=== PATIENT | male | born 1960 | race Caucasian/White ===

== ENCOUNTER 2023-04-03 11:53 | Emergency (ER) | payer OTHER, SELFPAY ==
[2023-04-03 11:59] VITALS: BP 142/67; PULSE 95; RESP 20; TEMP 37.2; O2SAT 96; BMI 39.1
--- NOTE | 2023-04-03 12:22 | ED.SKABFB1 ---
HPI - Skin/Abscess/Foreign Bdy General Chief complaint: Skin/Abscess/Foreign Body Stated complaint: tick bite/chest Time Seen by Provider: 04/03/23 12:06 Source: patient Mode of arrival: walk-in Limitations: no limitations History of Present Illness HPI narrative: 63-year-old male presents for a tick bite. His took it off of him this morning. It was definitely not there yesterday, it would have been noticed. They have a rescue dog and there was some ticks on the dog. He had some redness at the site so his brought him in to get checked. She is concerned because he is diabetic. No drainage. Related Data Home Medications Medication Instructions Recorded Confirmed amitriptyline 10 mg tablet 30 mg PO DAILY 04/03/23 04/03/23 gabapentin 600 mg tablet 1,200 mg PO TID 04/03/23 04/03/23 insulin aspart U-100 100 unit/mL 1 sliding scale dose subcut 04/03/23 04/03/23 (3 mL) subcutaneous pen (Novolog TIDWMEAL FlexPen U-100 Insulin aspart) insulin glargine 100 unit/mL (3 50 unit subcut BID 04/03/23 04/03/23 mL) subcutaneous pen (Lantus Solostar U-100 Insulin) losartan 50 mg tablet 50 mg PO DAILY 04/03/23 04/03/23 lovastatin 20 mg tablet 40 mg PO DAILY 04/03/23 04/03/23 lubiprostone 8 mcg capsule 8 mcg PO BID 04/03/23 04/03/23 metformin 1,000 mg tablet 1,000 mg PO BID 04/03/23 04/03/23 midodrine 2.5 mg tablet 2.5 mg PO DAILY 04/03/23 04/03/23 sertraline 100 mg tablet 100 mg PO BID 04/03/23 04/03/23 tizanidine 4 mg tablet 4 mg PO BEDTIME 04/03/23 04/03/23 Previous Rx's Medication Instructions Recorded cephalexin 500 mg capsule 500 mg PO TID 5 days #15 caps 04/03/23 Allergies Allergy/AdvReac Type Severity Reaction Status Date / Time No Known Drug Allergies Allergy Verified 04/03/23 12:05 Review of Systems ROS Narrative A ten point review of systems is negative except as noted above. PFSH PFSH Social History Smoking status: Never smoker Exam Narrative Exam Narrative: Nurses note and vital signs reviewed and patient is not hypoxic. General: The patient appears well and in no apparent distress. Patient is resting comfortably on cart. Skin: Warm, dry, no pallor noted. There is no rash noted. he has an area of erythema to the left upper chest wall, near the clavicle. It is not raised and there is no drainage. Head: Normocephalic, atraumatic Eye: Normal conjunctiva, no drainage Ears, Nose, Mouth, and Throat: oral mucosa is moist. Nares patent. Cardiovascular: Regular Rate and Rhythm Respiratory: Patient is in no distress, no accessory muscle use, lungs are clear to auscultation, no wheezing, rales or rhonchi Back: non-tender GI: soft and nontender Musculoskeletal: The patient has no evidence of calf tenderness, no pitting edema, symmetrical pulses noted bilaterally Neurological: A&O, normal speech Psychiatric: Cooperative Constitutional Vital Signs, click to edit/add: Last Vital Signs Temp 99 F 04/03/23 11:59 Pulse 95 H 04/03/23 11:59 Resp 20 04/03/23 11:59 BP 142/67 H 04/03/23 11:59 Pulse Ox 96 04/03/23 11:59 O2 Del Method Room Air 04/03/23 11:59 Course Vital Signs Vital signs: Vital Signs Temperature 99 F 04/03/23 11:59 Pulse Rate 95 H 04/03/23 11:59 Respiratory Rate 20 04/03/23 11:59 Blood Pressure 142/67 H 04/03/23 11:59 Pulse Oximetry 96 04/03/23 11:59 Oxygen Delivery Method Room Air 04/03/23 11:59 Temperature 99 F 04/03/23 11:59 Pulse Rate 95 H 04/03/23 11:59 Respiratory Rate 20 04/03/23 11:59 Blood Pressure 142/67 H 04/03/23 11:59 Pulse Oximetry 96 04/03/23 11:59 Oxygen Delivery Method Room Air 04/03/23 11:59 MDM - Skin/Abscess/Foreign Bdy MDM Narrative Medical decision making narrative: he was given a single dose of doxycycline here and prescribed a short course of Keflex. Treatment diagnosis and follow-up were discussed with the patient and his . Discharge Plan Discharge Chief Complaint: Skin/Abscess/Foreign Body Clinical Impression: Tick bite Patient Disposition: Home, Self-Care Time of Disposition Decision: 12:21 Condition: Good Mode of Transportation: Private Vehicle Prescriptions / Home Meds: New cephalexin 500 mg capsule 500 mg PO TID 5 Days Qty: 15 0RF No Action amitriptyline 10 mg tablet 30 mg PO DAILY gabapentin 600 mg tablet 1,200 mg PO TID insulin aspart U-100 [Novolog FlexPen U-100 Insulin] 100 unit/mL (3 mL) insulin pen 1 sliding scale dose SUBCUT TIDWMEAL losartan 50 mg tablet 50 mg PO DAILY lovastatin 20 mg tablet 40 mg PO DAILY lubiprostone 8 mcg capsule 8 mcg PO BID metformin 1,000 mg tablet 1,000 mg PO BID midodrine 2.5 mg tablet 2.5 mg PO DAILY sertraline 100 mg tablet 100 mg PO BID tizanidine 4 mg tablet 4 mg PO BEDTIME insulin glargine [Lantus Solostar U-100 Insulin] 100 unit/mL (3 mL) insulin pen 50 unit SUBCUT BID Instructions: Tick Bite (ED) Stand Alone Forms: Portal Instructions
[2023-04-03] MEDS: DOXYCYCLINE MONOHYDRATE 100 MG CAPSULE 200 MG PO (12:28)
== END 2023-04-03 12:48 | disposition home or self-care (01) ==
PROVIDERS: Emergency Provider Emergency Medicine
DX: S20.362A Insect bite (nonvenomous) of left front wall of thorax, initial encounter (principal); W57.XXXA Bitten or stung by nonvenomous insect and other nonvenomous arthropods, initial encounter; E11.9 Type 2 diabetes mellitus without complications; Z79.4 Long term (current) use of insulin; Z79.899 Other long term (current) drug therapy
CPT/HCPCS: 99283